=== PATIENT | female | born 1985 ===

== ENCOUNTER 2022-09-21 10:47 | Outpatient (REF) | payer OTHER, SELFPAY ==
--- NOTE | 2022-09-21 10:30 | PAPFT_PTH ---
PATIENT: Kumar La LOC: [facility] U#:[id number] AGE/SX: 37/F ROOM: RE09/21/[address]: Bree Vogel NP : 1985 BED: DIS: 09/21/2022 SPEC #: [id number] RECD: 09/21/22 12:51 STATUS: KOFI STUBBS #: [id number] RAJI: 09/21/22 10:[address]: Bree Vogel NP DEPT: [facility] Cytology RECD BY: Maia Holliday Tissues: 1 - CX/ENDOCX FOR PAP SMEARS Procedures: PAP THIN PREP/U[facility] Screening HPV DNA PROBE Comments: [id number]
== END 2022-09-21 10:48 | disposition home or self-care (01) ==
LOC: LBN 10:47
PROVIDERS: Visit Provider Nurse Practitioner Women's Health
DX: Z12.4 Encounter for screening for malignant neoplasm of cervix (principal); Z11.51 Encounter for screening for human papillomavirus (HPV)
CPT/HCPCS: 88142; 87624

== ENCOUNTER 2022-10-13 02:59 | Outpatient (CLI) | payer OTHER, SELFPAY ==
[2022-10-13 13:26] LABS: HCT 38.4 % (36.0-46.0); HGB 13.3 g/dL (11.2-15.7); MCH 31.1 pg (27.0-33.0); MCHC 34.6 % (32.0-36.0); MCV 90 fL (80-95); MPV 9.1 fL (8.0-11.0); Platelet Count 216 10^3/uL (130-400); RBC 4.28 10^6/uL (3.93-5.22); RDW 11.8 % (11.7-14.6); RDW-SD 38.6 fL; WBC 5.71 10^3/uL (4.4-10.8)
[2022-10-13 13:55] LABS: TSH (W/Ref FT4) 0.72 uIU/mL (0.36-3.74)
[2022-10-13 22:11] LABS: Estradiol 44 pg/mL (See Note)
[2022-10-13 22:20] LABS: FSH 8.8 mIU/mL (See Note)
[2022-10-15 10:07] LABS: Antimullerian Hormone 2.6 ng/mL (0.15-7.5)
== END 2022-10-13 03:00 | disposition home or self-care (01) ==
LOC: LBO 02:59
PROVIDERS: Visit Provider Nurse Practitioner Women's Health
DX: L65.9 Nonscarring hair loss, unspecified (principal); N97.8 Female infertility of other origin
CPT/HCPCS: 36415; 85027; 82670; 83001; 83520; 84443